=== PATIENT | male | born 1990 | race Two or more races ===

== ENCOUNTER 2024-12-11 13:37 | Emergency (ER) | payer OTHER, SELFPAY ==
[2024-12-11 13:48] VITALS: BP 130/75; PULSE 66; RESP 16; TEMP 36.6; O2SAT 97
[2024-12-11 13:53] VITALS: BMI 31.1
[2024-12-11] MEDS: DIPHTH,PERTUSS(ACELL),TET VAC 0.5 ML SYR- ADULT IMi (15:09)
--- NOTE | 2024-12-11 15:39 | EDNOTE_ITS ---
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 He states he was carrying a bag of dirty needles, used to inject methamphetamine, to his patrol vehicle when one of the needles poked through the bag and struck him in the left index finger palmar surface. The source patient was cited and released, but the officer indicates he can probably have her tested for HIV and hepatitis B & C. He denies any medical problems and states his last tetanus is unknown. Patient does not believe he was immunized against hepatitis B prior to being hired on the department. Related Data Previous Rx's ?Medication ?Instructions ?Recorded emtricitabine 200 mg-tenofovir 1 tab PO QDAY #28 tabs 12/11/24 disoproxil fumarate 300 mg tablet (Truvada) raltegravir 400 mg tablet 400 mg PO BID 28 days #56 ta bs 12/11/24 Allergies Allergy/AdvReac Type Severity Reaction Status Date / Time No Known Allergies Allergy Verified 12/11/24 14:49 Review of Systems Review of Systems Systems Reviewed: All systems reviewed, normal except as documented Past Medical History Past Medical History CARDIAC: Negative Congestive Heart Failure RESPIRATORY: Negative Chronic Obstructive Pulmonary Disease (COPD) GENITOURINARY: Negative Renal Disease ENDOCRINE: Negative Diabetes Mellitus Type 1 or Diabetes Mellitus Type 2 Social History SMOKING STATUS: Never smoker ED Exam Narrative Physical exam: Alert and oriented, very pleasant 34-year-old male, no acute distress. Vital signs blood pressure 130/75, pulse 66, respirations 16 and unlabored, temp 97.9, O2 sat 97% on room air. Lungs are clear, regular rate and rhythm, abdomen is soft and nontender. Left index finger without obvious puncture wound. Course Course Course Narrative: Patient's Tdap was updated. Labs were drawn for HIV 1 and 2 antibody, acute hepatitis panel, RPR/syphilis. All are nonreactive including hepatitis B. Discussed hepatitis B vaccine with hep B immunoglobulin. Patient declines the hepatitis vaccine, stating he does not do vaccines. Wound cleanse completed. Discussed postexposure prophylaxis for HIV/hepatitis B, and patient agrees to treatment plan. Quality Measures none Orders Category Date Time Status TDap [Obtain Tdap Consent] X1 Care 12/11/24 14:41 Active Wound Cleanser NEEDED Care 12/11/24 17:20 Active HIV (1&2) Antibody Rapid Stat Lab 12/11/24 15:15 Completed Hepatitis Acute Panel Stat Lab 12/11/24 15:15 Completed Syphilis Stat Lab 12/11/24 15:15 Completed TET,DIP/PERT AC (Adult)-Tdap [Boostrix Adult (Tdap) Med 12/11/24 15:15 Discontinued Vacc] 0.5 ml IMI .ONCE ONE Vital Signs Vital signs: Vital Signs Temperature 97.9 F 12/11/24 13:48 Pulse Rate 66 12/11/24 13:48 Respiratory Rate 16 12/11/24 13:48 Blood Pressure 130/75 12/11/24 13:48 Pulse Oximetry (%) 97 12/11/24 13:48 Oxygen Delivery Method Room Air 12/11/24 13:48 Extremity Injury MDM Narrative MDM Narrative:: 34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 He states he was carrying a bag of dirty needles, used to inject methamphetamine, to his patrol vehicle when one of the needles poked through the bag and struck him in the left index finger palmar surface. The source patient was cited and released, but the officer indicates he can probably have her tested for HIV and hepatitis B & C. He denies any medical problems and states his last tetanus is unknown. Patient does not believe he was immunized against hepatitis B prior to being hired on the department. Alert and oriented, very pleasant 34-year-old male, no acute distress. Vital signs blood pressure 130/75, pulse 66, respirations 16 and unlabored, temp 97.9, O2 sat 97% on room air. Lungs are clear, regular rate and rhythm, abdomen is soft and nontender. Left index finger without obvious puncture wound. Patient's Tdap was updated. Labs were drawn for HIV 1 and 2 antibody, acute hepatitis panel, RPR/syphilis AND ARE ALL NON-REACTIVE. Hepatitis B vaccine and immunoglobulin recommended however patient refuses any further vaccines. Wound cleanse completed. Discussed postexposure prophylaxis for HIV/hepatitis B, and patient agrees to treatment plan. Patient data External records reviewed:: [facility] previous records Clinical information provided by:: patient Social determinants that could affect healthcare access:: none Patient has the following chronic illnesses:: N/A How is presenting disease/condition affected by chronic disease/condition?: no chronic disease Evaluation data The following diagnostics were reviewed and interpreted by me:: lab results Lab and/or radiology exams considered but not ordered:: N/A Interpretation Summary: Hepatitis panel, HIV 1 and 2 antibody, and syphilis serology are all nonreactive. Medications / Prescriptions Medications or Prescriptions considered but not ordered:: Hepatitis B vaccine and HBIG recommended however patient refuses these vaccines. Medication administrations:: Medication Administration History Discontinued Medications Diphtheria/Tetanus/Acell Pertussis (Diphth,Pertuss(Acell),Tet Vac 0.5 Ml Syr- A dult) 0.5 ml IMi .ONCE ONE Stop: 12/11/24 15:16 Last Admin: 12/11/24 15:09 Dose: 0.5 ml Documented By: [facility] Tdap Consultations Consultation(s) initiated? (list below): Yes Consultation #1 (Physician, Specialty, Details): Discussed case with Dr. Garcia regarding laboratory testing and postexposure prophylaxis treatment. Diagnosis Upper Extremity Injury Differential Diagnosis: other (Dirty needlestick, HIV, hepatitis B, hepatitis C exposure.) Most likely diagnosis given after review of the tests above:: Puncture wound, HIV, hepatitis, syphilis possible exposure. Admission Indicated Admission indicated?: not indicated Explain why admission is indicated or not indicated:: Patient is stable for discharge Admission Request Was there a request for admission?: No Disposition Plan Disposition Plan: Discharge Discharge Attestation Discharge Attestation: The patient and all family members were given an opportunity to ask questions and understood the discharge instructions. Discharge instructions specifically effects, indications for sooner follow up or return to the emergency department, and the expected course of current diagnosis. Patient condition: Stable Discharge Plan Plan Patient Disposition: HOME (Self Care) Discharge Disposition comment: Stable Prescriptions/Referrals Prescriptions/Med Rec: New emtricitabine-tenofovir (TDF) [Truvada] 200-300 mg tablet 1 tab PO QDAY Qty: 28 0RF raltegravir 400 mg tablet 400 mg PO BID 28 Days Qty: 56 0RF Referrals: No Primary/Family,Physician [Primary Care Provider] - In 1 week Problem List Clinical Impression: Needlestick injury of finger of left hand Patient/Caregiver Discharge Instructions Additional Instructions: Take the postexposure prophylaxis oral medications as prescribed and complete the course for a full 28 days. Follow-up with your primary care physician in 24 to 48 hours. Return to the ED for any new or worsening symptoms. Print Language: Czech Stand Alone Forms: APR Award Info., Work/School Release, Patient Portal Info Letter Vaccines Vaccines Given During Stay: TDaP PA/ENGINEERING COORDINATOR Supervising Physician PA/ENGINEERING COORDINATOR Supervising Physician: Dr. Villalta
[2024-12-11 16:06] LABS: HIV (1&2) Antibody Rapid Non-Reactive
[2024-12-11 16:09] LABS: Syphilis Nonreactive (Nonreactive)
[2024-12-11 16:29] VITALS: BP 124/79; PULSE 67; RESP 18; TEMP 36.4; O2SAT 96
[2024-12-11 16:35] LABS: Hepatitis A Antibody IgM Non Reactive (Non React); Hepatitis B Core Antibody IgM Non Reactive (Non React); Hepatitis B Surface Antigen Non Reactive (Non React); Hepatitis C Antibody Non Reactive (Non React)
== END 2024-12-11 17:49 | disposition home or self-care (01) ==
PROVIDERS: Physician Assistant; Emergency Provider Emergency Medicine
DX: S61.231A Puncture wound without foreign body of left index finger without damage to nail, initial encounter (principal); W46.1XXA Contact with contaminated hypodermic needle, initial encounter; Y99.0 Civilian activity done for income or pay; Z23 Encounter for immunization
CPT/HCPCS: 36415; 80074; 86703; 86780; 90471; 90715; 99283